=== PATIENT | male | born 1990 | race American Indian/Alaskan Native ===

== ENCOUNTER 2016-10-19 00:47 | Emergency (ER) | payer SELFPAY ==
[2016-10-19 02:57] VITALS: BP 128/80
--- NOTE | 2016-10-19 03:03 | Emergency Department Report ---
Chief Complaint: Dental/Oral Stated Complaint: BROKEN TOOTH/PAIN Time Seen by Provider: 10/19/16 02:58 - HPI History of Present Illness: 26-year-old male comes in for complaint of tooth pain has been going on for 1 week. Patient reports that his filling had come out and now he's having pain. He reports he's been taking Advil and Motrin without much distress - Exam Vital Signs: Vital Signs 10/19/16 10/19/16 00:55 00:58 Temperature 98.3 F Pulse Rate 93 H 90 Respiratory 16 18 Rate Blood Pressure 133/80 Blood Pressure 128/80 [Left] O2 Sat by Pulse 100 99 Oximetry Physical Exam: Patient's alert and oriented 3. [place] is moisttooth 31 broken filling. MSE screening note: Focused history and physical exam performed. Due to findings the following was ordered: She has been evaluated by this provider. Patient be NME ED Disposition for MSE Condition: Stable Referrals: PRIMARY CARE, [Primary Care Provider] - 3-5 Days
== END 2016-10-19 02:57 | disposition left against medical advice (07) ==
LOC: ED 00:47
DX: K08.89 Other specified disorders of teeth and supporting structures (principal); Z53.21 Procedure and treatment not carried out due to patient leaving prior to being seen by health care provider